=== PATIENT | female | born 1985 | race Caucasian/White ===

== ENCOUNTER 2018-11-28 13:31 | Emergency (ER) | payer SELFPAY ==
--- NOTE | 2018-11-28 13:45 | ER ---
Nurse's Notes [facility] Name: Melba Lara Age: 33 yrs Sex: Female : 1985 Arrival Date: 11/28/2018 Time: 13:33 Bed 24 Private MD: Diagnosis: Dental caries;Dental root caries;Anxiety disorder, unspecified;Otitis externa Presentation: 11/28 13:33 Presenting complaint: Patient states: "I think I had an anxiety attack and I just lost [facility] it and started hitting the bed so my right hand hurt a little bit". Pt also reports pain to left ear and left jaw that began 1 week ago. Pt reports she is currently at [facility] for methamphetamine and synthetic marijuana use, reports last use was 2 weeks ago. 13:33 Transition of care: patient was received from another setting of care (long-term care [facility] facility), [facility]. Onset of symptoms was November 2018. Risk Assessment: Do you want to hurt yourself or someone else? Patient reports no desire to harm self or others. Initial Sepsis Screen: Does the patient meet any 2 criteria? No. Patient's initial sepsis screen is negative. Does the patient have a suspected source of infection? No. Patient's initial sepsis screen is negative. Care prior to arrival: None. 13:33 Acuity: FLORES 3 aa5 13:33 Method Of Arrival: EMS: [facility] aa5 [employer]: 13:35 LMP N/A - Irregular menses aa5 Historical: - Allergies: 13:34 No Known Allergies; aa5 - Home Meds: 13:34 ProAir HFA inhalation inhalation [Active]; aa5 - PMHx: 13:34 Asthma; aa5 13:33 Methamphetamine use and Synthetic Marijuana use; aa5 - PSHx: 13:34 ; Ear Tubes; aa5 - Immunization history:: Flu vaccine is not up to date. - Social history:: Smoking status: Patient uses tobacco products, smokes one pack cigarettes per day. - Family history:: not pertinent. - Ebola Screening: : No symptoms or risks identified at this time. Screenin:55 Abuse screen: Denies threats or abuse. Nutritional screening: No deficits noted. la1 Tuberculosis screening: No symptoms or risk factors identified. Fall Risk None identified. Assessment: 13:54 General: Appears comfortable, Behavior is anxious. Pain: Complains of pain in right la1 hand and left ear. Neuro: Level of Consciousness is awake, alert, obeys commands, Oriented to person, place, time, situation. Cardiovascular: Capillary refill < 3 seconds Patient's skin is warm and dry. Respiratory: Airway is patent Respiratory effort is even, unlabored. GI: No signs and/or symptoms were reported involving the gastrointestinal system. : No signs and/or symptoms were reported regarding the genitourinary system. EENT: Pinna with no deformity noted on left ear. Derm: No signs and/or symptoms reported regarding the dermatologic system. Vital Signs: 13:35 BP 154 / 106; Pulse 93; Resp 18 S; Temp 98.8(O); Pulse Ox 100% on R/A; Weight 54.43 kg aa5 (R); Height 5 ft. 2 in. (157.48 cm) (R); Pain 3/10; 13:35 Body Mass Index 21.95 (54.43 kg, 157.48 cm) aa5 ED Course: 13:33 Patient arrived in ED. [facility] 13:33 Kyle Curtis MD is Attending Physician. [facility] 13:33 Arm band placed on Patient placed in an exam room, on a stretcher. aa5 13:39 Triage completed. aa5 13:40 Gonzalo Ji, RN is Primary Nurse. la1 14:11 Patient has correct armband on for positive identification. la1 14:11 No provider procedures requiring assistance completed. Patient did not have IV access la1 during this emergency room visit. Administered Medications: 13:53 Drug: Ativan 2 mg Route: PO; la1 14:11 Follow up: Response: No adverse reaction la1 13:53 Drug: Rocephin (cefTRIAXone) 1 grams Route: IM; Site: right gluteus; la1 14:11 Follow up: Response: No adverse reaction la1 Outcome: 13:45 Discharge ordered by . zana 14:11 Discharged to home ambulatory. la1 14:11 Condition: stable 14:11 Discharge instructions given to patient, Instructed on discharge instructions, follow up and referral plans. medication usage, Demonstrated understanding of instructions, follow-up care, medications, Prescriptions given X 4. 14:12 Patient left the ED. la1 Signatures: Kyle Curtis MD MD cha Calderon, Audri RN RN aa5 Gonzalo Ji RN RN la1 Corrections: (The following items were deleted from the chart) 13:42 13:33 Transition of care: patient was not received from another setting of care. gilberto aa5
--- NOTE | 2018-11-28 13:46 | EDPHYS ---
Physician Documentation [facility] Name: Melba Lara Age: 33 yrs Sex: Female : 1985 Arrival Date: 11/28/2018 Time: 13:33 Bed 24 Private MD: ED Physician Kyle Curtis HPI: 11/28 13:36 This 33 yrs old Female presents to ER via Unassigned with complaints of zana anxiety, left ear pain. 13:36 The patient presents with pain. The complaints affect the left ear. Onset: The zana symptoms/episode began/occurred 2 day(s) ago. Modifying factors: The symptoms are alleviated by nothing, the symptoms are aggravated by pulling on ears. The patient presents with broken tooth/teeth, pain. The patient presents to the emergency department with anxiety, over unknown circumstances. 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 - Social history:: Smoking status: Patient uses tobacco products, smokes one pack cigarettes per day. - Family history:: not pertinent. - Ebola Screening: : No symptoms or risks identified at this time. ROS: 13:36 Constitutional: Negative for fever, chills, and weight loss, Eyes: Negative for injury, zana pain, redness, and discharge, Neck: Negative for injury, pain, and swelling, Cardiovascular: Negative for chest pain, palpitations, and edema, Respiratory: Negative for shortness of breath, cough, wheezing, and pleuritic chest pain, Abdomen/GI: Negative for abdominal pain, nausea, vomiting, diarrhea, and constipation, Back: Negative for injury and pain, : Negative for injury, bleeding, discharge, and swelling, MS/Extremity: Negative for injury and deformity, Skin: Negative for injury, rash, and discoloration, Neuro: Negative for headache, weakness, numbness, tingling, and seizure, Allergy/Immunology: Negative for hives, rash, and allergies, Endocrine: Negative for neck swelling, polydipsia, polyuria, polyphagia, and marked weight changes, Hematologic/Lymphatic: Negative for swollen nodes, abnormal bleeding, and unusual bruising. 13:36 ENT: Positive for ear pain. 13:36 MS/extremity: Positive for pain, of the dorsal aspect of proximal phalanx of right little finger and dorsum of right hand. Exam: 13:36 Constitutional: This is a well developed, well nourished patient who is awake, alert, zana and in no acute distress. Head/Face: Normocephalic, atraumatic. Eyes: Pupils equal round and reactive to light, extra-ocular motions intact. Lids and lashes normal. Conjunctiva and sclera are non-icteric and not injected. Cornea within normal limits. Periorbital areas with no swelling, redness, or edema. Neck: Trachea midline, no thyromegaly or masses palpated, and no cervical lymphadenopathy. Supple, full range of motion without nuchal rigidity, or vertebral point tenderness. No Meningismus. Chest/axilla: Normal chest wall appearance and motion. Nontender with no deformity. No lesions are appreciated. Cardiovascular: Regular rate and rhythm with a normal S1 and S2. No gallops, murmurs, or rubs. Normal PMI, no JVD. No pulse deficits. Respiratory: Lungs have equal breath sounds bilaterally, clear to auscultation and percussion. No rales, rhonchi or wheezes noted. No increased work of breathing, no retractions or nasal flaring. Abdomen/GI: Soft, non-tender, with normal bowel sounds. No distension or tympany. No guarding or rebound. No evidence of tenderness throughout. Back: No spinal tenderness. No costovertebral tenderness. Full range of motion. Skin: Warm, dry with normal turgor. Normal color with no rashes, no lesions, and no evidence of cellulitis. Neuro: Awake and alert, GCS 15, oriented to person, place, time, and situation. Cranial nerves II-XII grossly intact. Motor strength 5/5 in all extremities. Sensory grossly intact. Cerebellar exam normal. Normal gait. Psych: Awake, alert, with orientation to person, place and time. Behavior, mood, and affect are within normal limits. 13:36 ENT: Ear canal(s): erythema, TM's: erythema, that is mild, on the left, Mouth: Gums: reddened, Posterior pharynx: no acute changes, Airway: normal, no evidence of obstruction, Tonsils: are normal in appearance, Uvula: normal. Vital Signs: 13:35 BP 154 / 106; Pulse 93; Resp 18 S; Temp 98.8(O); Pulse Ox 100% on R/A; Weight 54.43 kg aa5 (R); Height 5 ft. 2 in. (157.48 cm) (R); Pain 3/10; 13:35 Body Mass Index 21.95 (54.43 kg, 157.48 cm) aa5 MDM: 13:33 Patient medically screened. [facility] 13:40 Data reviewed: vital signs, nurses notes. [facility] Administered Medications: 13:53 Drug: Ativan 2 mg Route: PO; la1 14:11 Follow up: Response: No adverse reaction mn1 13:53 Drug: Rocephin (cefTRIAXone) 1 grams Route: IM; Site: right gluteus; la1 14:11 Follow up: Response: No adverse reaction mn1 Disposition: 11/28/18 13:45 Discharged to Home. Impression: Dental caries, Dental root caries, Anxiety disorder, unspecified, Otitis externa. - Condition is Stable. - Discharge Instructions: Panic Attacks, Dental Caries, Adult, Dental Pain, Dental Pain, [id number], Panic Attacks, [id number], Diet and Dental Disease. - Prescriptions for Cortisporin 3.5- 10,000-1 mg/mL-unit/mL-% Otic solution - instill 4 drop by OTIC route 4 times per day for 10 days; 10 milliliter. Amoxicillin 500 mg Oral Capsule - take 1 capsule by ORAL route every 8 hours for 10 days; 30 tablet. Benadryl 25 mg Oral Capsule - take 2 capsule by ORAL route every 6 hours As needed; 36 tablet. Ibuprofen 600 mg Oral Tablet - take 1 tablet by ORAL route every 8 hours As needed take with food; 21 tablet. - Medication Reconciliation Form, Thank You Letter, Antibiotic Education, Prescription Opioid Use form. - Follow up: Private Physician; When: 2 - 3 days; Reason: Recheck today's complaints, Continuance of care, Re-evaluation by your physician. - Problem is new. - Symptoms have improved. Signatures: Kyle Curtis MD MD cha Calderon Linh, RN RN aa5 Gonzalo Ji RN RN la1 Corrections: (The following items were deleted from the chart) 14:12 13:45 11/28/2018 13:45 Discharged to Home. Impression: Dental caries; Dental root la1 caries; Anxiety disorder, unspecified; Otitis externa. Condition is Stable. Forms are Medication Reconciliation Form, Thank You Letter, Antibiotic Education, Prescription Opioid Use. Follow up: Private Physician; When: 2 - 3 days; Reason: Recheck today's complaints, Continuance of care, Re-evaluation by your physician. Problem is new. Symptoms have improved. zana
[2018-11-28] MEDS ORDERED: LIDOCAINE 2% MPF 5 ML VIAL ONE (14:02)
[2018-11-28] MEDS ORDERED: CEFTRIAXONE 1000 MG/VIAL ONE (14:02)
[2018-11-28] MEDS ORDERED: LORAZEPAM 1 MG TABLET ONE (14:02)
== END 2018-11-28 14:12 | disposition home or self-care (01) ==
LOC: ER 13:31
DX: H60.92 Unspecified otitis externa, left ear (principal); K02.7 Dental root caries; K02.9 Dental caries, unspecified; F17.210 Nicotine dependence, cigarettes, uncomplicated; J45.909 Unspecified asthma, uncomplicated
CPT/HCPCS: 96372; 99283